=== PATIENT | male | born 1960 | race Asian ===

== ENCOUNTER 2017-04-22 22:49 | Emergency (ER) | payer BC ==
[~2017-04-22] VITALS: Ht 165.1 cm; Wt 99.8 kg
[2017-04-22 23:00] VITALS: BP 151/97; PULSE 91; RESP 16; TEMP 97.9; O2SAT 100
[2017-04-23 00:01] VITALS: BP 151/97; PULSE 91; RESP 18; TEMP 97.9; O2SAT 100
--- NOTE | 2017-04-23 00:24 | PD ---
HPI Chief Complaint: Musculoskeletal Complaint Time Seen by Provider: 00:06 Travel History International Travel<30 days: No Contact w/Intl Traveler<30days: No Traveled to known affect area: No History of Present Illness HPI 56-year-old male presents to the emergency department for complaint of progressively worsening pain to the right lower extremity extending from the foot to the calf area without injury. Patient has noticed increasing swelling. Patient has also noticed increasing warmth and tenderness of the dorsum of the foot. Patient denies fever has had chills. Patient is not diabetic. Patient takes no prescription medications. Denies known history of gouty arthritis or diuretic use. Patient denies any injury or fall. Patient is otherwise in good health. No recent long distance travel protracted bedrest her surgical procedure. Patient reports he is concerned that he has a blood clot in the leg. PFSH Past Medical History Narrative Medical Dental extraction occasional alcohol use nursing notes reviewed Medical History: Denies Significant Hx Tetanus Vaccination: Unknown Influenza Vaccination: No Past Surgical History Oral Surgery: Yes ([place]ISDOM TEETH REMOVED) Social History Alcohol Use: Yes (OCCASIONAL) Tobacco Use: No Substance Use: No Allergies-Medications (Allergen,Severity, Reaction): Coded Allergies: No Known Allergies (Unverified , 04/23/17) Reported Meds & Prescriptions Reported Meds & Active Scripts Active Lortab (Hydrocodone-Acetaminophen) 5-325 Mg Tab 1 Tab PO Q6H PRN Ibuprofen 800 Mg Tab 800 Mg PO Q8H PRN Keflex (Cephalexin) 500 Mg Capsule 500 Mg PO Q6H 7 Days Review of Systems Except as stated in HPI: all other systems reviewed are Neg General / Constitutional: Positive: Chills, No: Fever HENT: No: Congestion Cardiovascular: No: Chest Pain or Discomfort Respiratory: No: Shortness of Breath, Pleuritic Pain Gastrointestinal: No: Nausea, Vomiting Genitourinary: No: Flank Pain Musculoskeletal: Positive: Edema (RLE), Pain (right foot ankle) Skin: No Rash Neurologic: No: Weakness Psychiatric: No: Anxiety Hematologic/Lymphatic: No: Easy Bruising Physical Exam Narrative GENERAL: Well-developed well-nourished male in no acute distress no respiratory distress SKIN: Warm and dry. HEAD: Normocephalic. EYES: No scleral icterus. No injection or drainage. NECK: Supple, trachea midline. No JVD or lymphadenopathy. CARDIOVASCULAR: Regular rate and rhythm without murmurs, gallops, or rubs. RESPIRATORY: Breath sounds equal bilaterally. No accessory muscle use. GASTROINTESTINAL: Abdomen soft, non-tender, nondistended. MUSCULOSKELETAL: No cyanosis, or edema. Attention right lower extremity tenderness warmth and redness over the dorsum of the right foot with mild extension into the ankle right calf greater than left calf size negative Homans negative posterior cording BACK: Nontender without obvious deformity. No CVA tenderness. Data Data Last Documented VS Orders Orders Us Leg Venous Doppler (04/23/17 ) Uric Acid (04/23/17 00:06) Foot, Complete ([id number]) (04/23/17 ) Complete Blood Count With Diff (04/23/17 00:06) Basic Metabolic Panel (Bmp) (04/23/17 00:06) Ketorolac Inj (Toradol Inj) (04/23/17 02:30) Cephalexin (Keflex) (04/23/17 02:30) Labs Laboratory Tests Test 04/23/17 00:22 White Blood Count 11.0 TH/MM3 Red Blood Count 4.91 MIL/MM3 Hemoglobin 15.6 GM/DL Hematocrit 42.8 % Mean Corpuscular Volume 87.2 FL Mean Corpuscular Hemoglobin 31.7 PG Mean Corpuscular Hemoglobin Concent 36.3 % Red Cell Distribution Width 13.0 % Platelet Count 284 TH/MM3 Mean Platelet Volume 7.7 FL Neutrophils (%) (Auto) 75.2 % Lymphocytes (%) (Auto) 14.8 % Monocytes (%) (Auto) 6.8 % Eosinophils (%) (Auto) 2.8 % Basophils (%) (Auto) 0.4 % Neutrophils # (Auto) 8.3 TH/MM3 Lymphocytes # (Auto) 1.6 TH/MM3 Monocytes # (Auto) 0.8 TH/MM3 Eosinophils # (Auto) 0.3 TH/MM3 Basophils # (Auto) 0.0 TH/MM3 CBC Comment AUTO DIFF Differential Comment AUTO DIFF CONFIRMED Platelet Estimate NORMAL Platelet Morphology Comment CLUMPED Red Cell Morphology Comment NORMAL Blood Urea Nitrogen 21 MG/DL Creatinine 1.10 MG/DL Random Glucose 108 MG/DL Calcium Level 9.1 MG/DL Uric Acid 8.2 MG/DL Sodium Level 134 MEQ/L Potassium Level 4.1 MEQ/L Chloride Level 101 MEQ/L Carbon Dioxide Level 23.8 MEQ/L Anion Gap 9 MEQ/L Estimat Glomerular Filtration Rate 70 ML/MIN MDM Medical Decision Making Medical Screen Exam Complete: Yes Emergency Medical Condition: Yes Medical Record Reviewed: Yes Interpretation(s) uric acid: 8.2, elevated Last Impressions Lower Extremity Ultrasound 04/23/17 0000 Signed Impressions: Service Date/Time: Sunday, April 23, 2017 00:29 - CONCLUSION: No venous thrombosis of the right lower extremity. Maico Gaxiola MD Foot X-Ray 04/23/17 0000 Signed Impressions: Service Date/Time: Sunday, April 23, 2017 00:10 - CONCLUSION: No acute abnormality seen of the right foot. Calcaneal spurring. Maico Gaxiola MD CBC & BMP Diagram 04/23/17 00:22 Calcium Level 9.1, Uric Acid 8.2 H Differential Diagnosis Cellulitis gouty arthritis DVT septic arthritis Narrative Course Patient very concerned about DVT noted to have area of erythema suspicious for gouty arthritis; ultrasound of the lower extremities for DVT x-ray revealed no foreign body or bony; gouty arthritis diagnosis consistent with physical exam and also uric acid level elevated Patient administered Toradol with symptomatic improvement; concerning however also for possible focal cellulitis patient also given prescription for Keflex patient clinically improved and stable for outpatient management and follow-up with primary care provider Patient informed of lab results and imaging study results. Diagnosis Primary Impression: Right foot pain Additional Impressions: Gouty arthritis Cellulitis Referrals: Primary Care Physician Patient Instructions: General Instructions Additional Instructions: take medications as prescribed Elevate foot Complete course of antibiotic as prescribed To the emergency department for any concerns or change in condition Med/Other Pt SpecificInfo: Prescription(s) given Scripts Hydrocodone-Acetaminophen (Lortab) 5-325 Mg Tab 1 TAB PO Q6H Y for PAIN, #7 TAB 0 Refills Prov: Mary Ferrari MD 04/23/17 Ibuprofen (Ibuprofen) 800 Mg Tab 800 MG PO Q8H Y for PAIN GREATER THAN 5, #12 TAB 0 Refills Prov: Mary Ferrari MD 04/23/17 Cephalexin (Keflex) 500 Mg Capsule 500 MG PO Q6H for Infection for 7 Days, #28 CAP 0 Refills Prov: Mary Ferrari MD 04/23/17 Disposition: 01 DISCHARGE HOME Condition: Stable Mary Ferrari MD Apr 23, 2017 00:24
--- NOTE | 2017-04-23 00:34 | RADRPT ---
EXAM DATE/TIME: 04/23/2017 00:10 [facility] COMPARISON: No previous studies available for comparison. INDICATIONS : Right foot pain. MEDICAL HISTORY : None. SURGICAL HISTORY : None. ENCOUNTER: Initial ACUITY: 4 - 6 days PAIN SCORE: 3/10 LOCATION: Right foot. FINDINGS: Three view examination of the right foot demonstrates no soft tissue swelling, dislocation, or fractu re. The tarsal bones appear intact. The interphalangeal and metatarsophalangeal joints are intact. The calcaneus is intact. Bony mineralization is normal. Moderate-sized heel spur. Also moderate to large enthesophyte of the Achilles insertion. CONCLUSION: No acute abnormality seen of the right foot. Calcaneal spurring. Maico Gaxiola MD on April 23, 2017 at 0:32 Board Certified Radiologist. This report was verified electronically.
[2017-04-23 00:42] LABS: POTASSIUM 4.1 MEQ/L (3.5-5.1)
[2017-04-23 00:45] LABS: BICARBONATE 23.8 MEQ/L (21.0-32.0)
--- NOTE | 2017-04-23 00:57 | RADRPT ---
EXAM DATE/TIME: 04/23/2017 00:29 [facility] COMPARISON: No previous studies available for comparison. INDICATIONS : Right leg pain. MEDICAL HISTORY : Right leg pain. Right swollen foot. SURGICAL HISTORY : [place] teeth removed. Left shoulder repair. ENCOUNTER: Initial ACUITY: 2 day PAIN SCORE: 6/10 LOCATION: Right leg. TECHNIQUE: Venous ultrasound of the leg was performed from the inguinal ligament to the proximal calf. Real-blanca e, color Doppler and spectral tracing, compression and augmentation techniques were used. FINDINGS: There is normal compressibility of the deep venous system from the inguinal region to the proximal ca lf. No echogenic clot is seen in the lumen of the common femoral, femoral, popliteal, and posterior tibial veins. There is a normal response of the venous system to proximal and distal augmentation an d respiration. CONCLUSION: No venous thrombosis of the right lower extremity. Maico Gaxiola MD on April 23, 2017 at 0:55 Board Certified Radiologist. This report was verified electronically.
[2017-04-23 01:41] LABS: AUTOMATED NEUTROPHIL # 8.3 TH/MM3 (1.8-7.7); BASOPHIL % 0.4 % (0.0-2.0); EOSINOPHIL # 0.3 TH/MM3 (0-0.4); EOSINOPHIL % 2.8 % (0.0-4.0); HEMATOCRIT 42.8 % (39.0-51.0); LYMPH % 14.8 % (9.0-44.0); LYMPHOCYTE # 1.6 TH/MM3 (1.0-4.8); MEAN CELL VOLUME 87.2 FL (80.0-100.0); MEAN CORPUSCULAR HEMOGLOBIN 31.7 PG (27.0-34.0); MONO % 6.8 % (0.0-8.0); NEUT % 75.2 % (16.0-70.0); PLATELET COUNT 284 TH/MM3 (150-450); RED BLOOD COUNT 4.91 MIL/MM3 (4.50-5.90)
[2017-04-23 01:42] LABS: HEMO FLAGS AUTO DIFF; MEAN CORPUSCULAR HGB CONC 36.3 % (32.0-36.0)
[2017-04-23 02:18] LABS: URIC ACID 8.2 MG/DL (2.6-7.2)
[2017-04-23] MEDS ORDERED: HYDR-3533 PO (02:21)
[2017-04-23] MEDS ORDERED: IBUP800T23 PO (02:21)
[2017-04-23] MEDS ORDERED: CEPH-460 PO (02:21)
[2017-04-23] MEDS ORDERED: CEPHALEXIN MONOHYDRATE 500 MG CAP PO ONE (02:30)
[2017-04-23] MEDS ORDERED: KETOROLAC TROMETHAMINE 30 MG/ML (IVP) VIAL IV PUSH ONE (02:30)
[2017-04-23 02:46] VITALS: BP 141/93
[2017-04-23 02:46] LABS: PLATELET ESTIMATE SMEAR NORMAL (NORMAL); SCAN/DIFF AUTO DIFF CONFIRMED
[2017-04-23 02:47] LABS: PLATELET MORPHOLOGY CLUMPED (NORMAL)
== END 2017-04-23 02:53 | disposition home or self-care (01) ==
LOC: PHED 22:49
DX: M79.671 Pain in right foot (principal); M10.9 Gout, unspecified
CPT/HCPCS: 73630; 80048; 84550; 85025; 93971; 96374; 99285; J1885